=== PATIENT | male | born 2000 | race Caucasian/White ===

== ENCOUNTER 2022-10-31 19:39 | Emergency (ER) | payer BC, SELFPAY ==
[2022-10-31 19:40] VITALS: BP 120/83; PULSE 105; RESP 18; TEMP 36.1; O2SAT 97; BMI 25.8
--- NOTE | 2022-10-31 19:48 | EX.ED.DYSGE1 ---
HPI History of Present Illness Chief Complaint: General Illness Informant: patient Narrative Narrative: Patient presents requesting a drug screen. He states that he was drinking last night. He had about 6 beers and a shot of vodka over course of 6 hours. He states he blacked out and does not not remember what happened. He was arrested. He states he is never had that happen before when he was drinking and is concerned that somebody slipped him something. He is requesting a drug screen. I did explain to him that there are many drugs used in this capacity that are not detected on a urine drug screen. He voices understanding that I am only able to test for limited number of drugs. [facility] Medical History Depression Home Medications citalopram 40 mg tablet 40 mg PO DAILY 10/31/22 [History Last Taken Unknown] Allergy/AdvReac Type Severity Reaction Status Date / Time pollen extracts [pollens] AdvReac Other Verified 10/31/22 19:41 Social History Smoking Status: Never smoker ROS ROS ED Constitutional Constitutional ED: Denies chills or fever(s) Eyes Eyes: Denies change in vision or discharge from eye(s) ENT ENT ED: Denies discharge from eye(s), rhinorrhea or sore throat Cardiovascular Cardiovascular: Denies chest pain or palpitations Respiratory/Chest Respiratory/Chest: Denies cough or dyspnea Gastrointestinal Gastrointestinal: Reports nausea and vomiting; Denies abdominal pain or diarrhea Musculoskeletal Musculoskeletal: Denies back pain or extremity pain Integumentary Denies Abrasions or rash Neurologic Neurologic: Denies headache(s) or weakness Psychiatric Psychiatric: Denies anxiety or depression Allergic/Immunologic Allergic/Immunologic ED: Denies lip swelling or urticaria EXAM Physical Exam Const Vital Signs: 10/31/22 19:40 10/31/22 20:01 Temperature 97 F L Temperature Source Temporal Pulse Rate 105 H Respiratory Rate 18 Respiratory Effort Normal Non-Labored Respiratory Pattern Normal Blood Pressure 120/83 H Blood Pressure Mean 95 Pulse Ox 97 Oxygen Delivery Method Room Air Positive well nourished and well developed General Appearance ED: well developed HEENT Reports normocephalic and head/scalp atraumatic Eyes PERRL and EOMs intact bilaterally Neck supple Chest Wall inspection of chest normal and palpation of chest normal Resp normal respiratory effort and clear to auscultation bilaterally Cardio regular rate and regular rhythm GI normal to inspection, nondistended, normoactive bowel sounds Palpation: soft Extremity normal to inspection Neuro oriented x3 and no sensory deficits noted Sensorium / Orientation: alert Motor Exam: strength 5/5 throughout Psych mental status grossly normal Skin no rashes or lesions noted MDM MDM MDM Narrative Medical decision making narrative: Patient is given Zofran for nausea. Urine tox screen obtained. Lab Data Labs: Laboratory Results - last 24 hr 10/31/22 20:20 Urine Opiates Screen NEGATIVE Urine Methadone Screen NEGATIVE Ur Barbiturates Screen NEGATIVE Ur Phencyclidine Scrn NEGATIVE Ur Amphetamines Screen NEGATIVE MDMA (Ecstasy) Screen NEGATIVE U Benzodiazepines Scrn NEGATIVE Urine Cocaine Screen NEGATIVE U Cannabinoids Screen POSITIVE H Ur Drug Screen Comment Treatment and Re-Evaluation :: Urine tox screen is positive for cannabinoids. No other drugs detected that we are able to test for. Patient does feel improved on repeat evaluation is tolerating p.o. fluids without difficulty. He will be discharged home. Discharge Plan Triage Chief Complaint: General Illness ED Provider: Prabha Rivas Dx/Rx/DC Orders Clinical Impression: Nausea Instructions: ED Vomiting (Adult) Prescriptions: No Action citalopram 40 mg Tablet 40 mg PO DAILY Primary Care Provider: Care Physician,No Primary Referrals: Care Physician,No Primary [Primary Care Provider] - Disposition Disposition: Home, Self Care
[2022-10-31] MEDS: Ondansetron ODT 4 MG Tablet PO (20:01)
[2022-10-31 21:04] LABS: Amphetamine Urine VISTA NEGATIVE (<1000 ng/mL); Barbiturate Urine VISTA NEGATIVE (< 200 ng/mL); Benzodiazepine Urine VISTA NEGATIVE (< 200 ng/mL); Cocaine Urine VISTA NEGATIVE (< 300 ng/mL); Ecstacy Urine VISTA NEGATIVE (< 500 ng/mL); Methadone Urine VISTA NEGATIVE (< 300 ng/mL); PCP Urine VISTA NEGATIVE (< 25 ng/mL); THC Urine VISTA POSITIVE (< 50 ng/mL); Vista UDS pH Range 5
[2022-10-31 21:13] VITALS: BP 120/83; PULSE 105; RESP 15; O2SAT 97
== END 2022-10-31 21:24 | disposition home or self-care (01) ==
PROVIDERS: Emergency Provider Emergency Medicine; Visit Provider Emergency Medicine
DX: R11.0 Nausea (principal); F32.A Depression, unspecified; Z79.899 Other long term (current) drug therapy
CPT/HCPCS: 80307; 99283